=== PATIENT | male | born 1970 | race Two or more races ===

== ENCOUNTER 2025-08-16 00:44 | Emergency (ER) | payer OTHER ==
[~2025-08-16] VITALS: Ht 167.6 cm; Wt 72.7 kg
[2025-08-16 01:17] VITALS: TEMP 98.2
[2025-08-16] MEDS: HYDROCODONE/ACETAMINOPHEN 10-325 MG TABLET PO ONE (02:24)
[2025-08-16] MEDS: LIDOCAINE 5% TRANSDERMAL PATCH TD ONE (02:24)
[2025-08-16 03:15] VITALS: BP 136/85; PULSE 75; RESP 15; O2SAT 100
== END 2025-08-16 03:35 ==
LOC: EMS 00:44
DX: S22.42XA Multiple fractures of ribs, left side, initial encounter for closed fracture (principal); S20.20XA Contusion of thorax, unspecified, initial encounter; F17.210 Nicotine dependence, cigarettes, uncomplicated; Z98.890 Other specified postprocedural states; X58.XXXA Exposure to other specified factors, initial encounter; Y93.89 Activity, other specified; Y92.89 Other specified places as the place of occurrence of the external cause; Y99.8 Other external cause status
CPT/HCPCS: 99283